=== PATIENT | female | born 1955 | race Caucasian/White ===

== ENCOUNTER 2021-08-06 12:23 | Inpatient (IN) | payer MEDICARE, OTHER ==
[~2021-08-06] VITALS: Ht 165.1 cm; Wt 59.9 kg
[2021-08-06 12:57] LABS: BASOPHILS % (AUTO) 0.4 % (0.0-2.0); EOSINOPHILS % (AUTO) 0.2 % (0.0-6.0); HEMATOCRIT 44 % (33-45); HEMOGLOBIN 14.5 g/dL (11.5-14.8); LYMPHOCYTES % (AUTO) 7.6 % (20.0-44.0); MEAN CORPUSCULAR HGB CONC 33 g/dl (31.0-36.0); MEAN CORPUSCULAR VOLUME 91 fL (82-100); MONOCYTES # (AUTO) 0.5 K/uL (0.1-1.30); MONOCYTES % (AUTO) 3.7 % (2.0-12.0); NEUTROPHILS # (AUTO) 11.3 K/uL (1.8-8.9); NEUTROPHILS % (AUTO) 88.1 % (43.0-81.0); PLATELET COUNT (AUTO) 359 K/uL (150-450); RED BLOOD CELL COUNT(AUTO) 4.82 MIL/uL (4.0-5.2); WHITE BLOOD COUNT (AUTO) 12.8 K/uL (4.3-11.0)
[2021-08-06] MEDS ORDERED: CEFEPIME 1 GM in IV D5W 50 ML IV ONE (13:00)
[2021-08-06] MEDS ORDERED: VANCOMYCIN 1 GM in IV D5W 250 ML IV ONE (13:00)
[2021-08-06 13:07] LABS: CALCIUM, SERUM 8.8 mg/dL (8.5-10.1); CARBON DIOXIDE 27 mmol/L (21-32); CHLORIDE 101 mmol/L (98-107); CREATININE 0.6 mg/dL (0.6-1.3); GLUCOSE 125 mg/dL (74-106); POTASSIUM 4.4 mmol/L (3.5-5.1); SODIUM SERUM 137 mmol/L (136-145); UREA NITROGEN, BLOOD 13 mg/dL (7-18)
[2021-08-06 13:12] LABS: ALANINE AMINOTRANSFERASE 16 U/L (12-78); ALBUMIN 3.1 g/dL (3.4-5.0); ALKALINE PHOSPHATASE 90 U/L (46-116); ASPARTATE AMINOTRANSFERASE 18 U/L (15-37); BILIRUBIN,DIRECT 0.2 mg/dL (0.0-0.2); BILIRUBIN,TOTAL 0.9 mg/dL (0.2-1.0); LIPASE 45 U/L (73-393); TOTAL PROTEIN, SERUM 7.3 g/dL (6.4-8.2)
[2021-08-06] MEDS ORDERED: HYDR-3980 PO (13:19)
[2021-08-06] MEDS ORDERED: PANT40TA49 PO (13:19)
[2021-08-06] MEDS ORDERED: APIX5TAB PO (13:19)
[2021-08-06] MEDS ORDERED: ATOR40TA PO (13:19)
[2021-08-06] MEDS ORDERED: ERGO500093 PO (13:19)
[2021-08-06] MEDS ORDERED: GABA600T12 PO (13:19)
[2021-08-06] MEDS ORDERED: LORA-259 PO (13:19)
[2021-08-06] MEDS ORDERED: METH2.5T14 MT (13:19)
[2021-08-06] MEDS ORDERED: CYCL10TA9 PO (13:19)
[2021-08-06] MEDS ORDERED: MAG HYDROX/AL HYDROX/SIMETH 30 ML UDC PO PRN (16:30)
[2021-08-06] MEDS ORDERED: ZOLPIDEM TARTRATE 5 MG TABLET PO PRN (16:30)
[2021-08-06] MEDS ORDERED: Z GUARD REMEDY 2 OZ OINT TP PRN (16:30)
[2021-08-06 17:06] LABS: BILIRUBIN,URINE Negative (NEGATIVE); COLOR,URINE YELLOW (YELLOW); LEUKOCYTE ESTERASE ,URINE Trace (NEGATIVE); NITRITE, URINE Negative (NEGATIVE); PROTEIN,URINE Negative (NEGATIVE); UGLUCOSE Negative (NEGATIVE); UROBILINOGEN,URINE 0.2 EU/dL (0.2)
[2021-08-06 17:13] LABS: BACTERIA,URINE Few /HPF (None Seen); SQUAMOUS EPITHELIAL CELL,UR Few /HPF (None Seen)
[2021-08-06] MEDS ORDERED: HYDROCODONE/APAP 10/325MG TABLET ONE (17:43)
[2021-08-06] MEDS: HYDROCODONE/APAP 10/325MG TABLET PO PRN (17:49)
[2021-08-06] MEDS ORDERED: METRONIDAZOLE 500MG/ NS 100ML 500 MG in PREMIX 1 EA IV SCH (18:00)
[2021-08-06] MEDS: IV NS 0.9% 1,000 ML IV SCH (18:52)
[2021-08-06] MEDS: APIXABAN 5 MG TABLET PO SCH (19:04)
[2021-08-06 20:00] VITALS: BP 119/74
[2021-08-06] MEDS: ONDANSETRON HCL/PF 4 MG/2 ML VIAL IVP PRN (20:19)
[2021-08-06] MEDS ORDERED: METRONIDAZOLE 500 MG TABLET PO SCH (21:00)
[2021-08-06] MEDS ORDERED: ERGOCALCIFEROL (VITAMIN D 2) 50,000 UNIT CAPSULE PO SCH ×2 (21:00)
[2021-08-06] MEDS: ATORVASTATIN 40 MG TABLET PO SCH ×2 (22:00→22:11)
[2021-08-06] MEDS: CYCLOBENZAPRINE 10 MG TABLET PO SCH (22:10)
[2021-08-06] MEDS: ERGOCALCIFEROL (VITAMIN D 2) 50,000 UNIT CAPSULE PO SCH (22:10)
[2021-08-06] MEDS: GABAPENTIN 400 MG CAPSULE PO SCH (22:11)
[2021-08-06] MEDS: METOCLOPRAMIDE HCL 10 MG/2 ML VIAL IV PRN (22:11)
[2021-08-07] VITALS (7 sets, daily range): BP systolic 100–151; BP diastolic 71–100
[2021-08-07] MEDS: IV NS 0.9% 1,000 ML IV SCH ×2 (04:45→16:58)
[2021-08-07] MEDS: HYDROCODONE/APAP 10/325MG TABLET PO PRN ×2 (06:16→17:11)
[2021-08-07] MEDS: METRONIDAZOLE 500 MG TABLET PO SCH ×3 (06:16→17:09)
[2021-08-07] MEDS: PANTOPRAZOLE 40 MG TABLET.DR PO SCH (08:15)
[2021-08-07 08:24] LABS: BASOPHILS % (AUTO) 0.3 % (0.0-2.0); EOSINOPHILS % (AUTO) 0.4 % (0.0-6.0); HEMATOCRIT 41 % (33-45); HEMOGLOBIN 13.6 g/dL (11.5-14.8); LYMPHOCYTES # (AUTO) 1.1 K/uL (0.8-4.8); LYMPHOCYTES % (AUTO) 9.8 % (20.0-44.0); MEAN CORPUSCULAR HGB CONC 33 g/dl (31.0-36.0); MEAN CORPUSCULAR VOLUME 92 fL (82-100); MONOCYTES # (AUTO) 0.5 K/uL (0.1-1.30); MONOCYTES % (AUTO) 4.6 % (2.0-12.0); NEUTROPHILS # (AUTO) 9.1 K/uL (1.8-8.9); NEUTROPHILS % (AUTO) 84.9 % (43.0-81.0); PLATELET COUNT (AUTO) 282 K/uL (150-450); RED BLOOD CELL COUNT(AUTO) 4.45 MIL/uL (4.0-5.2); WHITE BLOOD COUNT (AUTO) 10.8 K/uL (4.3-11.0)
[2021-08-07 08:33] LABS: CALCIUM, SERUM 8.6 mg/dL (8.5-10.1); CREATININE 0.6 mg/dL (0.6-1.3); MAGNESIUM 1.9 mg/dL (1.8-2.4); POTASSIUM 3.8 mmol/L (3.5-5.1)
[2021-08-07] MEDS: APIXABAN 5 MG TABLET PO SCH ×2 (08:57→17:09)
[2021-08-07] MEDS: LORAZEPAM 1 MG TABLET PO PRN (09:29)
[2021-08-07] MEDS ORDERED: predniSONE 10 MG TABLET PO SCH (11:00)
[2021-08-07] MEDS: predniSONE 5 MG TABLET PO SCH (11:42)
[2021-08-07] MEDS: CYCLOBENZAPRINE 10 MG TABLET PO SCH (22:04)
[2021-08-07] MEDS: GABAPENTIN 400 MG CAPSULE PO SCH (22:04)
[2021-08-07] MEDS: ATORVASTATIN 40 MG TABLET PO SCH (22:04)
[2021-08-07] MEDS: ONDANSETRON HCL/PF 4 MG/2 ML VIAL IVP PRN (22:14)
[2021-08-08] VITALS (9 sets, daily range): BP systolic 112–146; BP diastolic 72–110
[2021-08-08] MEDS: METRONIDAZOLE 500 MG TABLET PO SCH ×4 (00:30→17:03)
[2021-08-08] MEDS: HYDROCODONE/APAP 10/325MG TABLET PO PRN ×4 (00:34→21:01)
[2021-08-08] MEDS: IV NS 0.9% 1,000 ML IV SCH ×3 (04:02→18:54)
[2021-08-08] MEDS: METOCLOPRAMIDE HCL 10 MG/2 ML VIAL IV PRN ×2 (05:55→18:19)
[2021-08-08 08:29] LABS: BASOPHILS % (AUTO) 0.5 % (0.0-2.0); EOSINOPHILS % (AUTO) 2.1 % (0.0-6.0); HEMATOCRIT 36 % (33-45); HEMOGLOBIN 11.9 g/dL (11.5-14.8); LYMPHOCYTES # (AUTO) 1.8 K/uL (0.8-4.8); LYMPHOCYTES % (AUTO) 22.3 % (20.0-44.0); MEAN CORPUSCULAR HGB CONC 33 g/dl (31.0-36.0); MEAN CORPUSCULAR VOLUME 92 fL (82-100); MONOCYTES # (AUTO) 0.3 K/uL (0.1-1.30); NEUTROPHILS # (AUTO) 5.6 K/uL (1.8-8.9); NEUTROPHILS % (AUTO) 71.1 % (43.0-81.0); PLATELET COUNT (AUTO) 238 K/uL (150-450); RED BLOOD CELL COUNT(AUTO) 3.96 MIL/uL (4.0-5.2); WHITE BLOOD COUNT (AUTO) 7.9 K/uL (4.3-11.0)
[2021-08-08] MEDS: PANTOPRAZOLE 40 MG TABLET.DR PO SCH (09:25)
[2021-08-08] MEDS: predniSONE 5 MG TABLET PO SCH (09:25)
[2021-08-08] MEDS: APIXABAN 5 MG TABLET PO SCH ×2 (09:31→17:03)
[2021-08-08 09:37] LABS: CREATININE 0.5 mg/dL (0.6-1.3); POTASSIUM 3.1 mmol/L (3.5-5.1)
[2021-08-08] MEDS: ONDANSETRON HCL/PF 4 MG/2 ML VIAL IVP PRN ×2 (11:21→20:54)
[2021-08-08] MEDS: LORAZEPAM 1 MG TABLET PO PRN ×2 (11:21→18:17)
[2021-08-08] MEDS: GABAPENTIN 400 MG CAPSULE PO SCH ×2 (22:00→22:07)
[2021-08-08] MEDS: ATORVASTATIN 40 MG TABLET PO SCH (22:07)
[2021-08-08] MEDS: CYCLOBENZAPRINE 10 MG TABLET PO SCH (22:07)
[2021-08-09] VITALS (8 sets, daily range): BP systolic 109–149; BP diastolic 63–98
[2021-08-09] MEDS: METOCLOPRAMIDE HCL 10 MG/2 ML VIAL IV PRN ×2 (01:28→11:34)
[2021-08-09] MEDS: HYDROCODONE/APAP 10/325MG TABLET PO PRN ×5 (01:50→21:36)
[2021-08-09] MEDS: IV NS 0.9% 1,000 ML IV SCH ×2 (03:41→09:59)
[2021-08-09] MEDS: METRONIDAZOLE 500 MG TABLET PO SCH ×5 (05:34→18:00)
[2021-08-09 06:28] LABS: CALCIUM, SERUM 8.2 mg/dL (8.5-10.1); CREATININE 0.5 mg/dL (0.6-1.3)
[2021-08-09 06:31] LABS: BASOPHILS # (AUTO) 0.1 K/uL (0.0-0.2); BASOPHILS % (AUTO) 0.4 % (0.0-2.0); EOSINOPHILS % (AUTO) 0.5 % (0.0-6.0); HEMATOCRIT 40 % (33-45); HEMOGLOBIN 13.3 g/dL (11.5-14.8); LYMPHOCYTES # (AUTO) 1.2 K/uL (0.8-4.8); LYMPHOCYTES % (AUTO) 9.8 % (20.0-44.0); MEAN CORPUSCULAR HGB CONC 34 g/dl (31.0-36.0); MEAN CORPUSCULAR VOLUME 92 fL (82-100); MONOCYTES # (AUTO) 0.6 K/uL (0.1-1.30); MONOCYTES % (AUTO) 5.1 % (2.0-12.0); NEUTROPHILS # (AUTO) 10.2 K/uL (1.8-8.9); NEUTROPHILS % (AUTO) 84.2 % (43.0-81.0); PLATELET COUNT (AUTO) 292 K/uL (150-450); RED BLOOD CELL COUNT(AUTO) 4.32 MIL/uL (4.0-5.2); WHITE BLOOD COUNT (AUTO) 12.1 K/uL (4.3-11.0)
[2021-08-09 06:33] LABS: POTASSIUM 2.8 mmol/L (3.5-5.1)
[2021-08-09] MEDS ORDERED: POTASSIUM CHLORIDE 20 MEQ TAB.PRT.SR PO SCH (08:00)
[2021-08-09] MEDS ORDERED: VANCOMYCIN 1.25 GM in IV D5W 250 ML IV ONE (08:00)
[2021-08-09] MEDS: PANTOPRAZOLE 40 MG TABLET.DR PO SCH (09:24)
[2021-08-09] MEDS: predniSONE 5 MG TABLET PO SCH (09:24)
[2021-08-09] MEDS: APIXABAN 5 MG TABLET PO SCH ×2 (09:27→16:30)
[2021-08-09] MEDS: POTASSIUM CL. PREMIX PERIPHER. 50 ML IV SCH ×8 (09:28→18:08)
[2021-08-09] MEDS: LORAZEPAM 1 MG TABLET PO PRN (11:33)
[2021-08-09] MEDS: VANCOMYCIN 0.75 GM in IV D5W 250 ML IV SCH (17:29)
[2021-08-09] MEDS: ATORVASTATIN 40 MG TABLET PO SCH ×2 (21:21→22:00)
[2021-08-09] MEDS: CYCLOBENZAPRINE 10 MG TABLET PO SCH (21:21)
[2021-08-09] MEDS: GABAPENTIN 400 MG CAPSULE PO SCH (21:22)
[2021-08-10] VITALS: BP 96/73
[2021-08-10] MEDS: METRONIDAZOLE 500 MG TABLET PO SCH ×4 (00:28→17:56)
[2021-08-10] MEDS: VANCOMYCIN 0.75 GM in IV D5W 250 ML IV SCH ×2 (00:28→13:09)
[2021-08-10] MEDS: IV NS 0.9% 1,000 ML IV SCH ×3 (00:29→20:33)
[2021-08-10 04:00] VITALS: BP 110/78
[2021-08-10] MEDS: ACETAMINOPHEN 325 MG TABLET PO PRN (04:37)
[2021-08-10] MEDS: HYDROCODONE/APAP 10/325MG TABLET PO PRN ×3 (06:25→17:56)
[2021-08-10 06:46] LABS: BASOPHILS % (AUTO) 0.6 % (0.0-2.0); EOSINOPHILS % (AUTO) 2.8 % (0.0-6.0); HEMATOCRIT 37 % (33-45); HEMOGLOBIN 12.4 g/dL (11.5-14.8); LYMPHOCYTES # (AUTO) 1.6 K/uL (0.8-4.8); LYMPHOCYTES % (AUTO) 22.6 % (20.0-44.0); MEAN CORPUSCULAR HGB CONC 34 g/dl (31.0-36.0); MEAN CORPUSCULAR VOLUME 92 fL (82-100); MONOCYTES # (AUTO) 0.5 K/uL (0.1-1.30); MONOCYTES % (AUTO) 6.5 % (2.0-12.0); NEUTROPHILS # (AUTO) 4.9 K/uL (1.8-8.9); NEUTROPHILS % (AUTO) 67.5 % (43.0-81.0); PLATELET COUNT (AUTO) 268 K/uL (150-450); RED BLOOD CELL COUNT(AUTO) 4.02 MIL/uL (4.0-5.2); WHITE BLOOD COUNT (AUTO) 7.3 K/uL (4.3-11.0)
[2021-08-10 07:07] LABS: CALCIUM, SERUM 8.3 mg/dL (8.5-10.1); CREATININE 0.5 mg/dL (0.6-1.3); POTASSIUM 2.9 mmol/L (3.5-5.1)
[2021-08-10 10:00] VITALS: BP 126/73
[2021-08-10] MEDS: predniSONE 5 MG TABLET PO SCH (10:43)
[2021-08-10] MEDS: PANTOPRAZOLE 40 MG TABLET.DR PO SCH (10:43)
[2021-08-10] MEDS: POTASSIUM CHLORIDE 20 MEQ TAB.PRT.SR PO SCH ×3 (10:44→12:59)
[2021-08-10] MEDS: APIXABAN 5 MG TABLET PO SCH ×2 (11:18→17:57)
[2021-08-10] MEDS ORDERED: VANCOMYCIN 500 MG in IV D5W 100ml IV SCH (13:00)
[2021-08-10] MEDS: LORAZEPAM 1 MG TABLET PO PRN (15:37)
[2021-08-10 17:00] VITALS: BP 131/98
[2021-08-10 20:00] VITALS: BP 93/75
[2021-08-10] MEDS: CYCLOBENZAPRINE 10 MG TABLET PO SCH (21:14)
[2021-08-10] MEDS: GABAPENTIN 400 MG CAPSULE PO SCH (21:14)
[2021-08-10] MEDS: ATORVASTATIN 40 MG TABLET PO SCH (21:38)
[2021-08-11] VITALS: BP 133/88
[2021-08-11] MEDS: METRONIDAZOLE 500 MG TABLET PO SCH ×5 (00:04→23:02)
[2021-08-11] MEDS: HYDROCODONE/APAP 10/325MG TABLET PO PRN ×5 (00:04→19:06)
[2021-08-11] MEDS: VANCOMYCIN 0.75 GM in IV D5W 250 ML IV SCH ×2 (01:00→14:52)
[2021-08-11 04:00] VITALS: BP 131/86
[2021-08-11] MEDS: IV NS 0.9% 1,000 ML IV SCH ×2 (05:48→17:00)
[2021-08-11] MEDS: ACETAMINOPHEN 325 MG TABLET PO PRN (05:56)
[2021-08-11 06:57] LABS: BASOPHILS % (AUTO) 0.4 % (0.0-2.0); EOSINOPHILS % (AUTO) 4.1 % (0.0-6.0); HEMATOCRIT 36 % (33-45); HEMOGLOBIN 12.2 g/dL (11.5-14.8); LYMPHOCYTES % (AUTO) 29.7 % (20.0-44.0); MEAN CORPUSCULAR HGB CONC 34 g/dl (31.0-36.0); MEAN CORPUSCULAR VOLUME 92 fL (82-100); MONOCYTES # (AUTO) 0.4 K/uL (0.1-1.30); NEUTROPHILS % (AUTO) 59.8 % (43.0-81.0); PLATELET COUNT (AUTO) 290 K/uL (150-450); RED BLOOD CELL COUNT(AUTO) 3.89 MIL/uL (4.0-5.2); WHITE BLOOD COUNT (AUTO) 6.7 K/uL (4.3-11.0)
[2021-08-11 07:55] LABS: CREATININE 0.5 mg/dL (0.6-1.3); POTASSIUM 3.3 mmol/L (3.5-5.1)
[2021-08-11 08:15] VITALS: BP 119/92
[2021-08-11] MEDS: PANTOPRAZOLE 40 MG TABLET.DR PO SCH (08:29)
[2021-08-11] MEDS: APIXABAN 5 MG TABLET PO SCH ×2 (08:30→17:05)
[2021-08-11] MEDS: predniSONE 5 MG TABLET PO SCH (08:30)
[2021-08-11] MEDS ORDERED: POTASSIUM CHLORIDE 20 MEQ TAB.PRT.SR PO ONE (11:00)
[2021-08-11] MEDS: ONDANSETRON HCL/PF 4 MG/2 ML VIAL IVP PRN (11:23)
[2021-08-11 12:00] VITALS: BP 115/79
[2021-08-11 20:00] VITALS: BP 114/81
[2021-08-11] MEDS: CYCLOBENZAPRINE 10 MG TABLET PO SCH (21:05)
[2021-08-11] MEDS: ATORVASTATIN 40 MG TABLET PO SCH (21:05)
[2021-08-11] MEDS: GABAPENTIN 400 MG CAPSULE PO SCH (21:05)
[2021-08-12] VITALS: BP 143/95
[2021-08-12] MEDS: LORAZEPAM 1 MG TABLET PO PRN (01:27)
[2021-08-12] MEDS: IV NS 0.9% 1,000 ML IV SCH ×3 (02:58→21:52)
[2021-08-12] MEDS ORDERED: VANCOMYCIN 0.75 GM in IV D5W 250 ML IV SCH (03:00)
[2021-08-12] MEDS: HYDROCODONE/APAP 10/325MG TABLET PO PRN ×4 (03:08→18:45)
[2021-08-12 04:00] VITALS: BP 126/86
[2021-08-12] MEDS: METRONIDAZOLE 500 MG TABLET PO SCH ×2 (05:29→11:26)
[2021-08-12 06:37] LABS: BASOPHILS % (AUTO) 0.5 % (0.0-2.0); EOSINOPHILS % (AUTO) 3.6 % (0.0-6.0); HEMATOCRIT 40 % (33-45); HEMOGLOBIN 13.5 g/dL (11.5-14.8); LYMPHOCYTES # (AUTO) 2.4 K/uL (0.8-4.8); LYMPHOCYTES % (AUTO) 27.1 % (20.0-44.0); MEAN CORPUSCULAR HGB CONC 34 g/dl (31.0-36.0); MEAN CORPUSCULAR VOLUME 93 fL (82-100); MONOCYTES # (AUTO) 0.5 K/uL (0.1-1.30); MONOCYTES % (AUTO) 5.3 % (2.0-12.0); NEUTROPHILS # (AUTO) 5.7 K/uL (1.8-8.9); NEUTROPHILS % (AUTO) 63.5 % (43.0-81.0); PLATELET COUNT (AUTO) 343 K/uL (150-450); RED BLOOD CELL COUNT(AUTO) 4.33 MIL/uL (4.0-5.2)
[2021-08-12 06:49] LABS: CALCIUM, SERUM 8.5 mg/dL (8.5-10.1); CREATININE 0.6 mg/dL (0.6-1.3); POTASSIUM 3.1 mmol/L (3.5-5.1)
[2021-08-12] MEDS: PANTOPRAZOLE 40 MG TABLET.DR PO SCH (08:03)
[2021-08-12] MEDS: predniSONE 5 MG TABLET PO SCH (08:03)
[2021-08-12] MEDS: APIXABAN 5 MG TABLET PO SCH ×2 (08:05→16:39)
[2021-08-12 08:36] VITALS: BP 135/98
[2021-08-12] MEDS ORDERED: METHOTREXATE SODIUM (2.5MG) 2.5 MG TABLET PO SCH (09:00)
[2021-08-12] MEDS: POTASSIUM CHLORIDE 20 MEQ TAB.PRT.SR PO SCH ×2 (11:26→12:28)
[2021-08-12] MEDS: ONDANSETRON HCL/PF 4 MG/2 ML VIAL IVP PRN (13:49)
[2021-08-12] MEDS: VANCOMYCIN 1 GM in IV D5W 250 ML IV SCH (15:31)
[2021-08-12 15:41] VITALS: BP 120/70
[2021-08-12 20:00] VITALS: BP 147/119
[2021-08-12] MEDS: CYCLOBENZAPRINE 10 MG TABLET PO SCH (21:36)
[2021-08-12] MEDS: GABAPENTIN 400 MG CAPSULE PO SCH (21:36)
[2021-08-12] MEDS: ATORVASTATIN 40 MG TABLET PO SCH (21:43)
[2021-08-13] VITALS: BP 134/76
[2021-08-13] MEDS: HYDROCODONE/APAP 10/325MG TABLET PO PRN ×4 (01:06→18:50)
[2021-08-13] MEDS: VANCOMYCIN 1 GM in IV D5W 250 ML IV SCH (03:04)
[2021-08-13 04:00] VITALS: BP 132/72
[2021-08-13 06:58] LABS: CREATININE 0.5 mg/dL (0.6-1.3); POTASSIUM 3.3 mmol/L (3.5-5.1)
[2021-08-13 08:00] VITALS: BP 129/83
[2021-08-13] MEDS: PANTOPRAZOLE 40 MG TABLET.DR PO SCH (09:03)
[2021-08-13] MEDS: predniSONE 5 MG TABLET PO SCH (09:03)
[2021-08-13] MEDS: APIXABAN 5 MG TABLET PO SCH ×2 (09:14→17:28)
[2021-08-13] MEDS ORDERED: POTASSIUM CHLORIDE 20 MEQ TAB.PRT.SR PO SCH (11:00)
[2021-08-13] MEDS: IV NS 0.9% 1,000 ML IV SCH ×2 (15:39→18:30)
[2021-08-13 16:00] VITALS: BP 123/78
[2021-08-13 20:00] VITALS: BP 135/89
[2021-08-13] MEDS: ATORVASTATIN 40 MG TABLET PO SCH ×2 (21:20→21:26)
[2021-08-13] MEDS: GABAPENTIN 400 MG CAPSULE PO SCH (21:20)
[2021-08-13] MEDS: ERGOCALCIFEROL (VITAMIN D 2) 50,000 UNIT CAPSULE PO SCH (21:20)
[2021-08-13] MEDS: CYCLOBENZAPRINE 10 MG TABLET PO SCH (21:20)
[2021-08-13] MEDS: LORAZEPAM 1 MG TABLET PO PRN (21:35)
[2021-08-14] VITALS: BP 128/90
[2021-08-14] MEDS: HYDROCODONE/APAP 10/325MG TABLET PO PRN ×4 (02:12→20:13)
[2021-08-14] MEDS: IV NS 0.9% 1,000 ML IV SCH (03:37)
[2021-08-14 04:00] VITALS: BP 123/92
[2021-08-14 06:21] LABS: CALCIUM, SERUM 8.3 mg/dL (8.5-10.1); CREATININE 0.5 mg/dL (0.6-1.3); POTASSIUM 3.3 mmol/L (3.5-5.1)
[2021-08-14 08:00] VITALS: BP 144/85
[2021-08-14] MEDS: PANTOPRAZOLE 40 MG TABLET.DR PO SCH (08:00)
[2021-08-14] MEDS: predniSONE 5 MG TABLET PO SCH (08:00)
[2021-08-14] MEDS: APIXABAN 5 MG TABLET PO SCH ×2 (08:02→16:07)
[2021-08-14] MEDS: POTASSIUM CHLORIDE 20 MEQ TAB.PRT.SR PO SCH ×2 (09:51→16:06)
[2021-08-14] MEDS: IV NS 0.9% 1,000 ML IV PRN (15:03)
[2021-08-14 16:00] VITALS: BP 121/74
[2021-08-14] MEDS: LORAZEPAM 1 MG TABLET PO PRN (16:17)
[2021-08-14 20:00] VITALS: BP 162/90
[2021-08-14] MEDS: ATORVASTATIN 40 MG TABLET PO SCH ×2 (22:00→22:12)
[2021-08-14] MEDS: CYCLOBENZAPRINE 10 MG TABLET PO SCH (22:11)
[2021-08-14] MEDS: GABAPENTIN 400 MG CAPSULE PO SCH (22:12)
[2021-08-15] VITALS: BP 136/89
[2021-08-15] MEDS: HYDROCODONE/APAP 10/325MG TABLET PO PRN ×3 (02:55→13:16)
[2021-08-15 04:00] VITALS: BP 124/78
[2021-08-15 04:01] VITALS: BP 124/78
[2021-08-15 06:54] LABS: CALCIUM, SERUM 8.5 mg/dL (8.5-10.1); CREATININE 0.5 mg/dL (0.6-1.3); POTASSIUM 3.7 mmol/L (3.5-5.1)
[2021-08-15] MEDS: IV NS 0.9% 1,000 ML IV PRN (07:20)
[2021-08-15 08:00] VITALS: BP 142/99
[2021-08-15] MEDS: PANTOPRAZOLE 40 MG TABLET.DR PO SCH (08:39)
[2021-08-15] MEDS: predniSONE 5 MG TABLET PO SCH (08:39)
[2021-08-15] MEDS: APIXABAN 5 MG TABLET PO SCH (08:41)
[2021-08-15] MEDS ORDERED: METOPROLOL TARTRATE 50 MG TABLET PO SCH (11:00)
[2021-08-15 11:17] VITALS: BP 124/70
[2021-08-15] MEDS ORDERED: METO50TA16 PO (12:00)
[2021-08-15] MEDS ORDERED: APIX5TAB PO (12:00)
== END 2021-08-15 14:20 | disposition home or self-care (01) | DRG 872 ==
LOC: ER 12:27 → TELE1 17:58 → TELE 08-08 06:03
PROVIDERS: ADMIT Family Medicine; ATTEND Internal Medicine
DX: A41.9 Sepsis, unspecified organism (principal); E44.1 Mild protein-calorie malnutrition; E87.2 Acidosis; E78.5 Hyperlipidemia, unspecified; I48.91 Unspecified atrial fibrillation; K21.9 Gastro-esophageal reflux disease without esophagitis; M79.7 Fibromyalgia; Z20.822 Contact with and (suspected) exposure to COVID-19; M19.90 Unspecified osteoarthritis, unspecified site; Z88.8 Allergy status to other drugs, medicaments and biological substances; Z79.01 Long term (current) use of anticoagulants; Z79.899 Other long term (current) drug therapy; K57.90 Diverticulosis of intestine, part unspecified, without perforation or abscess without bleeding
CPT/HCPCS: 36415; 71045-TC; 80048-TC; 80076-TC; 80202-TC; 81001; 83605-TC; 83690-TC; 83735-TC; 84100-TC; 84484-TC; 85025-TC; 85730-TC; 87040-TC; 87081-TC; 87086-TC; 87177; 87186-TC; 87209; 93307-TC; A4216; G0378; J0692; J2405; J2765; J3370; J3480; J7030; J7060; J7512; J8610

== ENCOUNTER 2021-09-04 04:48 | Emergency (ER) | payer OTHER ==
[~2021-09-04] VITALS: Ht 165.1 cm; Wt 72.6 kg
[~2021-09-04 04:48] MED LIST: APIX5TAB PO; ATOR40TA PO; CYCL10TA9 PO; ERGO500093 PO; GABA600T12 PO; HYDR-3980 PO; LORA-259 PO; METH2.5T14 MT; METO50TA16 PO; PANT40TA49 PO
[2021-09-04] MEDS ORDERED: MORPHINE SULFATE INJ 4 MG/ML DISP.SYRIN ONE (05:04)
[2021-09-04] MEDS ORDERED: ONDANSETRON HCL/PF 4 MG/2 ML VIAL ONE (05:04)
--- NOTE | 2021-09-04 05:06 | NUR ---
[facility]. TO ER BED 10. AAOX4. NOT IN RESP DISTRESS. BROUGHT IN FOR GEN ABDOMINAL PAIN X 2 DAYS W/ ASSOCIATED NAUSEA AND VOMMITING. PT IS AFEBRILE. MD WAS AT THE BEDSIDE FOR EVAL. ORDERS RECEIVED, NOTED AND CARRIED OUT.
--- NOTE | 2021-09-04 05:22 | NUR ---
PATIENT TAKEN TO CT
[2021-09-04 05:25] LABS: BASOPHILS % (AUTO) 0.3 % (0.0-2.0); EOSINOPHILS % (AUTO) 0.1 % (0.0-6.0); HEMATOCRIT 44 % (33-45); HEMOGLOBIN 14.7 g/dL (11.5-14.8); LYMPHOCYTES # (AUTO) 0.7 K/uL (0.8-4.8); LYMPHOCYTES % (AUTO) 6.7 % (20.0-44.0); MEAN CORPUSCULAR HGB CONC 34 g/dl (31.0-36.0); MEAN CORPUSCULAR VOLUME 91 fL (82-100); MONOCYTES # (AUTO) 0.1 K/uL (0.1-1.30); MONOCYTES % (AUTO) 1.2 % (2.0-12.0); NEUTROPHILS # (AUTO) 9.7 K/uL (1.8-8.9); NEUTROPHILS % (AUTO) 91.7 % (43.0-81.0); PLATELET COUNT (AUTO) 363 K/uL (150-450); RED BLOOD CELL COUNT(AUTO) 4.81 MIL/uL (4.0-5.2); WHITE BLOOD COUNT (AUTO) 10.5 K/uL (4.3-11.0)
[2021-09-04] MEDS ORDERED: IV NS 0.9% 500 ML BAG IV ONE (05:30)
[2021-09-04] MEDS ORDERED: ONDANSETRON HCL/PF 4 MG/2 ML VIAL IVP ONE (05:30)
[2021-09-04] MEDS ORDERED: MORPHINE SULFATE INJ 2 MG/ML DISP.SYRIN IV ONE (05:30)
--- NOTE | 2021-09-04 05:37 | NUR ---
PATIENT RETURNED FROM CT
[2021-09-04 05:42] LABS: ALANINE AMINOTRANSFERASE 21 U/L (12-78); ALBUMIN 3.3 g/dL (3.4-5.0); ALKALINE PHOSPHATASE 109 U/L (46-116); ASPARTATE AMINOTRANSFERASE 19 U/L (15-37); BILIRUBIN,DIRECT 0.2 mg/dL (0.0-0.2); BILIRUBIN,TOTAL 0.8 mg/dL (0.2-1.0); LIPASE 41 U/L (73-393); TOTAL PROTEIN, SERUM 7.1 g/dL (6.4-8.2)
[2021-09-04 06:06] LABS: CALCIUM, SERUM 8.8 mg/dL (8.5-10.1); CARBON DIOXIDE 23 mmol/L (21-32); CHLORIDE 95 mmol/L (98-107); CREATININE 0.7 mg/dL (0.6-1.3); GLUCOSE 128 mg/dL (74-106); SODIUM SERUM 134 mmol/L (136-145); UREA NITROGEN, BLOOD 13 mg/dL (7-18)
--- NOTE | 2021-09-04 06:26 | NUR ---
URINE COLLECTED AND SENT TO LAB
[2021-09-04 07:01] LABS: BILIRUBIN,URINE SMALL (NEGATIVE); COLOR,URINE YELLOW (YELLOW); NITRITE, URINE NEGATIVE (NEGATIVE); PROTEIN,URINE TRACE mg/dl (NEGATIVE); UGLUCOSE NEGATIVE (NEGATIVE); UROBILINOGEN,URINE 0.2 EU/dL (0.2)
[2021-09-04 07:26] LABS: LEUKOCYTE ESTERASE ,URINE 2+ (NEGATIVE)
[2021-09-04 07:27] LABS: BACTERIA,URINE Moderate /HPF (None Seen); SQUAMOUS EPITHELIAL CELL,UR Few /HPF (None Seen)
[2021-09-04] MEDS ORDERED: ONDA4TAB5 PO (07:54)
[2021-09-04] MEDS ORDERED: IV NS 0.9% 500 ML IV ONE (08:00)
[2021-09-04] MEDS ORDERED: METOCLOPRAMIDE HCL 10 MG/2 ML VIAL IV ONE (08:30)
[2021-09-04] MEDS ORDERED: METOCLOPRAMIDE HCL 10 MG/2 ML VIAL ONE (08:31)
--- NOTE | 2021-09-04 08:40 | NUR ---
FAIZA SISTER WILL RECEIVE THE PATIENT ONCE DISCHARGED
--- NOTE | 2021-09-04 08:47 | NUR ---
[facility] BLS TRANSPORT ETA 1100.
--- NOTE | 2021-09-04 08:53 | NUR ---
PT ASSISTED TO BEDPAN
[2021-09-04] MEDS ORDERED: CEPH500C2 PO (10:05)
[2021-09-04] MEDS ORDERED: CEPHALEXIN MONOHYDRATE 500 MG CAPSULE PO ONE ×2 (10:16→10:30)
--- NOTE | 2021-09-04 10:42 | NUR ---
PT LAYING IN BED COMFORTABLY. VS STABLE.
--- NOTE | 2021-09-04 11:20 | NUR ---
IV removed. Catheter intact and site benign. Pressure and 4x4 applied to site. No bleeding noted.Patient discharged to home in stable condition. Written and verbal after care instructions given. Patient verbalizes understanding of instruction.
--- NOTE | 2021-09-04 11:21 | NUR ---
PICKED UP BY TRANSPORT IN STABLE CONDITION
[2021-09-04 11:28] VITALS: BP 141/84
== END 2021-09-04 11:29 | disposition home or self-care (01) ==
LOC: ER 04:53
DX: R11.2 Nausea with vomiting, unspecified (principal); R10.9 Unspecified abdominal pain; I48.91 Unspecified atrial fibrillation; Z88.8 Allergy status to other drugs, medicaments and biological substances; Z79.899 Other long term (current) drug therapy
CPT/HCPCS: 36415; 71045; 74176; 80048; 80076; 81001; 83690; 84484; 85025; 85730; 87077; 87086; 87186; 93005; 96361; 96374; 96375; 99285; J2270; J2405; J2765; J7030